=== PATIENT | female | born 1925 | race Caucasian/White ===

== ENCOUNTER 2016-06-09 13:07 | Inpatient (IN) | payer OTHER, BC ==
[~2016-06-09] VITALS: Ht 162.6 cm; Wt 52.5 kg
[2016-06-09 14:03] LABS: HEMATOCRIT 30.6 % (36.0-46.0); MCH 28.3 PG (29.0-34.0); MCHC 31.7 G/DL (30.0-36.0); MCV 89.2 FL (83-99); MEAN PLAT.VOLUME 9.2 uM^3 (9.5-12.4); RBC DIS.WIDTH-CV 14.5 % (11.8-14.6); RBC DIS.WIDTH-SD 47.5 % (39-53); RED BLOOD COUNT 3.43 M/uL (3.80-5.20); WHITE BLOOD COUNT 7.2 K/uL (4.1-10.2)
[2016-06-09 14:06] LABS: PLATELET COUNT 295 K/uL (156-360)
[2016-06-09 14:13] LABS: CHLORIDE 100 mEq/L (99-109); POTASSIUM 4.5 mEq/L (3.7-5.4); SODIUM 131 mEq/L (136-147)
[2016-06-09 14:15] LABS: GLUCOSE 109 mg/dL (70-99)
[2016-06-09 14:17] LABS: ANION GAP 8 MEQ/L (2-14); TOTAL BILIRUBIN 0.3 mg/dL (0.0-1.0)
[2016-06-09 14:19] LABS: ALKALINE PHOSPHATASE 101 IU/L (3-129); GFR ESTIMATE (CALCULATED) > 59 mL/min/
[2016-06-09 14:20] LABS: UREA NITROGEN (BUN) 11 mg/dL (9-23)
[2016-06-09 16:16] LABS: ADD MIUA? YES; BILIRUBIN NEGATIVE; BLOOD NEGATIVE; COLOR YELLOW ((YELLOW)); GLUCOSE (STRIP) NEGATIVE; KETONES 5; LEUKOCYTES TRACE; NITRITE NEGATIVE; PROTEIN (STRIP) NEGATIVE; SPECIFIC GRAVITY 1.009 (1.000-1.030); UROBILINOGEN 0.2 MG/DL (0.2-1.0)
[2016-06-09 16:22] LABS: BACTERIA NONE SEEN /HPF; EPITHELIAL CELLS RARE /HPF; MUCUS TRACE /LPF; RED BLOOD CELLS 0-5 /HPF (0-5); UCUL ADDED? NO; WHITE BLOOD CELLS 0-5 /HPF (0-5)
[2016-06-09] MEDS ORDERED: ZOFRAN8 MG PO (16:52)
[2016-06-09] MEDS ORDERED: ULTRAM50 MG PO (16:52)
[2016-06-09] MEDS ORDERED: RESTASIS 01 DROP/0.4 BOTH EYES (16:57)
[2016-06-09] MEDS ORDERED: PROTONIX40 MG PO (16:58)
[2016-06-09] MEDS ORDERED: DIOVAN160 MG PO ×2 (16:58→17:12)
[2016-06-09] MEDS ORDERED: LORAZEPAM0.5 MG PO (16:59)
[2016-06-09] MEDS ORDERED: LO-DOSE ASPIRIN81 M1 PO (17:00)
[2016-06-09] MEDS ORDERED: CLARITIN,ALAVAR10 MG PO (17:00)
[2016-06-09] MEDS ORDERED: TYLENOL PM1 CAPLET PO (17:01)
[2016-06-09 17:04] LABS: ERTH.SED.RATE 69 MM/HR (0-30)
[2016-06-09] MEDS ORDERED: MIRALAX255 GM PO (17:11)
[2016-06-09 17:44] LABS: C-REACTIVE PROTEIN 151.7 MG/L (0-10)
[2016-06-09 19:00] VITALS: BP 157/89
[2016-06-09 20:36] VITALS: BP 164/80
[2016-06-09 23:57] VITALS: BP 144/77
[2016-06-10 04:30] VITALS: BP 122/67
[2016-06-10 07:56] LABS: EOSINOPHIL (%) 0.1 % (0-5); HEMATOCRIT 29.8 % (36.0-46.0); IMMATURE GRANULOCYTE (%) 2.2 % (0.0-0.7); IMMATURE GRANULOCYTE COUNT 0.2 K/uL; INSTRUMENT ABS NEUTROPHIL CT 5.4 K/uL; MCH 28.2 PG (29.0-34.0); MCHC 31.5 G/DL (30.0-36.0); MCV 89.5 FL (83-99); MEAN PLAT.VOLUME 9.3 uM^3 (9.5-12.4); MONOCYTE (%) 13.4 % (3-12); NEUTROPHIL (%) 70.9 % (45-76); NEUTROPHIL COUNT 5.4 K/uL (1.8-6.4); PLATELET COUNT 308 K/uL (156-360); RBC DIS.WIDTH-CV 14.8 % (11.8-14.6); RBC DIS.WIDTH-SD 48.2 % (39-53); RED BLOOD COUNT 3.33 M/uL (3.80-5.20); WHITE BLOOD COUNT 7.6 K/uL (4.1-10.2)
[2016-06-10 08:00] VITALS: BP 152/70
[2016-06-10 08:20] LABS: ANION GAP 10 MEQ/L (2-14); CHLORIDE 102 MEQ/L (99-109); GFR ESTIMATE (CALCULATED) > 59 mL/min/; GLUCOSE 148 mg/dL (70-99); POTASSIUM 4.1 MEQ/L (3.7-5.4); SAMPLE HEMOLYSIS CHECK 0; SAMPLE ICTERIC CHECK 0; SAMPLE LIPEMIA CHECK 0; SODIUM 133 MEQ/L (136-147); UREA NITROGEN (BUN) 9 mg/dL (9-23)
[2016-06-10 16:00] VITALS: BP 143/67
[2016-06-10 20:00] VITALS: BP 130/65
[2016-06-10 23:43] VITALS: BP 136/71
[2016-06-11 04:00] VITALS: BP 161/83
[2016-06-11 07:03] LABS: ALKALINE PHOSPHATASE 65 IU/L (3-129); ANION GAP 6 MEQ/L (2-14); CHLORIDE 104 MEQ/L (99-109); GFR ESTIMATE (CALCULATED) > 59 mL/min/; GLUCOSE 142 mg/dL (70-99); POTASSIUM 3.9 MEQ/L (3.7-5.4); SAMPLE HEMOLYSIS CHECK 0; SAMPLE ICTERIC CHECK 0; SAMPLE LIPEMIA CHECK 0; SODIUM 135 MEQ/L (136-147); TOTAL BILIRUBIN 0.2 MG/DL (0.0-1.0); UREA NITROGEN (BUN) 10 mg/dL (9-23)
[2016-06-11 07:27] LABS: EOSINOPHIL (%) 0.1 % (0-5); HEMATOCRIT 25.7 % (36.0-46.0); IMMATURE GRANULOCYTE (%) 0.8 % (0.0-0.7); IMMATURE GRANULOCYTE COUNT 0.1 K/uL; INSTRUMENT ABS NEUTROPHIL CT 9.3 K/uL; LYMPHOCYTE COUNT 0.9 K/uL (1.0-2.8); MCH 27.9 PG (29.0-34.0); MCHC 31.1 G/DL (30.0-36.0); MCV 89.5 FL (83-99); MEAN PLAT.VOLUME 9.3 uM^3 (9.5-12.4); MONOCYTE (%) 7.9 % (3-12); MONOCYTE COUNT 0.9 K/uL (0-0.8); NEUTROPHIL (%) 83.4 % (45-76); NEUTROPHIL COUNT 9.3 K/uL (1.8-6.4); PLATELET COUNT 304 K/uL (156-360); RBC DIS.WIDTH-CV 14.9 % (11.8-14.6); RBC DIS.WIDTH-SD 48.5 % (39-53); RED BLOOD COUNT 2.87 M/uL (3.80-5.20)
[2016-06-11 07:47] LABS: WHITE BLOOD COUNT 11.1 K/uL (4.1-10.2)
[2016-06-11 08:40] VITALS: BP 163/74
[2016-06-11 16:50] VITALS: BP 168/78
[2016-06-11 19:20] VITALS: BP 148/74
[2016-06-11 23:25] VITALS: BP 166/91
[2016-06-12] VITALS (7 sets, daily range): BP systolic 130–180; BP diastolic 72–95
[2016-06-12 07:12] LABS: EOSINOPHIL (%) 0.1 % (0-5); HEMATOCRIT 25.8 % (36.0-46.0); IMMATURE GRANULOCYTE (%) 1.2 % (0.0-0.7); IMMATURE GRANULOCYTE COUNT 0.2 K/uL; INSTRUMENT ABS NEUTROPHIL CT 11.4 K/uL; LYMPHOCYTE COUNT 0.7 K/uL (1.0-2.8); MCH 28.2 PG (29.0-34.0); MCHC 31.4 G/DL (30.0-36.0); MCV 89.9 FL (83-99); MEAN PLAT.VOLUME 9.8 uM^3 (9.5-12.4); MONOCYTE (%) 7.8 % (3-12); NEUTROPHIL (%) 85.8 % (45-76); NEUTROPHIL COUNT 11.4 K/uL (1.8-6.4); PLATELET COUNT 338 K/uL (156-360); RBC DIS.WIDTH-CV 15.1 % (11.8-14.6); RBC DIS.WIDTH-SD 50.1 % (39-53); RED BLOOD COUNT 2.87 M/uL (3.80-5.20); WHITE BLOOD COUNT 13.3 K/uL (4.1-10.2)
[2016-06-12 07:39] LABS: ANION GAP 9 MEQ/L (2-14); CHLORIDE 104 MEQ/L (99-109); GFR ESTIMATE (CALCULATED) > 59 mL/min/; GLUCOSE 130 mg/dL (70-99); POTASSIUM 3.3 MEQ/L (3.7-5.4); SAMPLE HEMOLYSIS CHECK 0; SAMPLE ICTERIC CHECK 0; SAMPLE LIPEMIA CHECK 0; SODIUM 137 MEQ/L (136-147); UREA NITROGEN (BUN) 8 mg/dL (9-23)
[2016-06-13 03:46] VITALS: BP 140/82
[2016-06-13 07:00] VITALS: BP 109/82
[2016-06-13 07:07] LABS: EOSINOPHIL (%) 0.1 % (0-5); HEMATOCRIT 26.6 % (36.0-46.0); IMMATURE GRANULOCYTE (%) 1.3 % (0.0-0.7); MCH 28.3 PG (29.0-34.0); MCHC 32.3 G/DL (30.0-36.0); MCV 87.5 FL (83-99); MEAN PLAT.VOLUME 9.2 uM^3 (9.5-12.4); MONOCYTE (%) 9.8 % (3-12); NEUTROPHIL (%) 80.1 % (45-76); PLATELET COUNT 380 K/uL (156-360); RBC DIS.WIDTH-CV 14.9 % (11.8-14.6); RBC DIS.WIDTH-SD 48.1 % (39-53); RED BLOOD COUNT 3.04 M/uL (3.80-5.20); WHITE BLOOD COUNT 13.9 K/uL (4.1-10.2)
[2016-06-13 07:08] LABS: IMMATURE GRANULOCYTE COUNT 0.2 K/uL; INSTRUMENT ABS NEUTROPHIL CT 11.1 K/uL; LYMPHOCYTE COUNT 1.2 K/uL (1.0-2.8); MONOCYTE COUNT 1.4 K/uL (0-0.8); NEUTROPHIL COUNT 11.1 K/uL (1.8-6.4)
[2016-06-13 07:45] LABS: ANION GAP 11 MEQ/L (2-14); CHLORIDE 97 MEQ/L (99-109); GFR ESTIMATE (CALCULATED) > 59 mL/min/; IRON 23 MCG/DL (35-150); SAMPLE HEMOLYSIS CHECK 0; SAMPLE ICTERIC CHECK 0; SAMPLE LIPEMIA CHECK 0; SODIUM 134 MEQ/L (136-147); UREA NITROGEN (BUN) 8 mg/dL (9-23)
[2016-06-13 07:51] LABS: GLUCOSE 91 mg/dL (70-99)
[2016-06-13 12:25] VITALS: BP 140/79
[2016-06-13 15:08] VITALS: BP 168/97
[2016-06-13 16:06] LABS: C DIFF TOXIN POSITIVE (NEGATIVE)
[2016-06-13 16:10] LABS: PROBE CHECK PASS
[2016-06-13 19:01] VITALS: BP 144/76
[2016-06-14] VITALS: BP 132/86
[2016-06-14 07:30] VITALS: BP 166/84
[2016-06-14 07:30] LABS: EOSINOPHIL (%) 0.1 % (0-5); HEMATOCRIT 29.5 % (36.0-46.0); IMMATURE GRANULOCYTE (%) 1.4 % (0.0-0.7); IMMATURE GRANULOCYTE COUNT 0.2 K/uL; INSTRUMENT ABS NEUTROPHIL CT 13.4 K/uL; LYMPHOCYTE COUNT 1.1 K/uL (1.0-2.8); MCH 28.1 PG (29.0-34.0); MCHC 32.2 G/DL (30.0-36.0); MCV 87.3 FL (83-99); MEAN PLAT.VOLUME 9.4 uM^3 (9.5-12.4); MONOCYTE (%) 9.3 % (3-12); MONOCYTE COUNT 1.5 K/uL (0-0.8); NEUTROPHIL (%) 82.4 % (45-76); NEUTROPHIL COUNT 13.4 K/uL (1.8-6.4); PLATELET COUNT 472 K/uL (156-360); RBC DIS.WIDTH-CV 15.1 % (11.8-14.6); RBC DIS.WIDTH-SD 48.5 % (39-53); RED BLOOD COUNT 3.38 M/uL (3.80-5.20); WHITE BLOOD COUNT 16.3 K/uL (4.1-10.2)
[2016-06-14 08:02] LABS: ANION GAP 13 MEQ/L (2-14); CHLORIDE 99 MEQ/L (99-109); GFR ESTIMATE (CALCULATED) > 59 mL/min/; GLUCOSE 101 mg/dL (70-99); SAMPLE HEMOLYSIS CHECK 0; SAMPLE ICTERIC CHECK 0; SAMPLE LIPEMIA CHECK 0; SODIUM 135 MEQ/L (136-147); UREA NITROGEN (BUN) 15 mg/dL (9-23)
[2016-06-14 08:03] LABS: POTASSIUM 4.7 MEQ/L (3.7-5.4)
[2016-06-14 10:32] LABS: D-DIMER ELISA 2.65 mg/L FEU (< 0.57)
[2016-06-14 11:10] VITALS: BP 152/98
[2016-06-14 16:25] VITALS: BP 150/96
[2016-06-14 23:31] VITALS: BP 156/79
[2016-06-15 06:43] VITALS: BP 143/88
[2016-06-15 07:12] LABS: EOSINOPHIL (%) 0.7 % (0-5); EOSINOPHIL COUNT 0.1 K/uL (0-0.3); HEMATOCRIT 27.5 % (36.0-46.0); IMMATURE GRANULOCYTE (%) 1.2 % (0.0-0.7); IMMATURE GRANULOCYTE COUNT 0.2 K/uL; INSTRUMENT ABS NEUTROPHIL CT 10.7 K/uL; LYMPHOCYTE COUNT 1.4 K/uL (1.0-2.8); MCH 27.9 PG (29.0-34.0); MCHC 32.4 G/DL (30.0-36.0); MCV 86.2 FL (83-99); MEAN PLAT.VOLUME 9.2 uM^3 (9.5-12.4); MONOCYTE (%) 10.4 % (3-12); MONOCYTE COUNT 1.4 K/uL (0-0.8); NEUTROPHIL (%) 77.2 % (45-76); NEUTROPHIL COUNT 10.7 K/uL (1.8-6.4); PLATELET COUNT 474 K/uL (156-360); RBC DIS.WIDTH-CV 15.4 % (11.8-14.6); RBC DIS.WIDTH-SD 48.7 % (39-53); RED BLOOD COUNT 3.19 M/uL (3.80-5.20); WHITE BLOOD COUNT 13.8 K/uL (4.1-10.2)
[2016-06-15 07:39] LABS: ANION GAP 13 MEQ/L (2-14); CHLORIDE 101 MEQ/L (99-109); GFR ESTIMATE (CALCULATED) > 59 mL/min/; GLUCOSE 99 mg/dL (70-99); SAMPLE HEMOLYSIS CHECK 0; SAMPLE ICTERIC CHECK 0; SAMPLE LIPEMIA CHECK 0; SODIUM 137 MEQ/L (136-147); UREA NITROGEN (BUN) 13 mg/dL (9-23)
[2016-06-15 16:15] VITALS: BP 130/72
[2016-06-16 01:03] VITALS: BP 158/66
[2016-06-16 08:10] VITALS: BP 152/81
[2016-06-16 15:50] VITALS: BP 138/84
[2016-06-17] VITALS (7 sets, daily range): BP systolic 111–150; BP diastolic 74–89
[2016-06-17 07:15] LABS: HEMATOCRIT 27.4 % (36.0-46.0); MCH 28.1 PG (29.0-34.0); MCHC 32.8 G/DL (30.0-36.0); MCV 85.6 FL (83-99); MEAN PLAT.VOLUME 9.3 uM^3 (9.5-12.4); PLATELET COUNT 513 K/uL (156-360); RBC DIS.WIDTH-CV 15.6 % (11.8-14.6); RBC DIS.WIDTH-SD 48.7 % (39-53); WHITE BLOOD COUNT 13.2 K/uL (4.1-10.2)
[2016-06-17 12:40] LABS: TROP-I INTERPRETATION NEGATIVE; TROPONIN-I 0.19 ng/mL (0.0-0.30)
[2016-06-17 13:04] LABS: ANION GAP 10 MEQ/L (2-14); CHLORIDE 98 MEQ/L (99-109); GFR ESTIMATE (CALCULATED) > 59 mL/min/; GLUCOSE 131 mg/dL (70-99); MAGNESIUM 1.5 mg/dl (1.3-2.7); SAMPLE HEMOLYSIS CHECK 0; SAMPLE ICTERIC CHECK 0; SAMPLE LIPEMIA CHECK 0; SODIUM 132 MEQ/L (136-147); UREA NITROGEN (BUN) 10 mg/dL (9-23)
[2016-06-17 13:14] LABS: POTASSIUM 3.1 MEQ/L (3.7-5.4)
[2016-06-18 04:00] VITALS: BP 139/78
[2016-06-18 06:59] LABS: MCH 28.1 PG (29.0-34.0); MCHC 32.7 G/DL (30.0-36.0); MCV 86.1 FL (83-99); MEAN PLAT.VOLUME 9.5 uM^3 (9.5-12.4); PLATELET COUNT 466 K/uL (156-360); RBC DIS.WIDTH-SD 49.3 % (39-53); RED BLOOD COUNT 3.02 M/uL (3.80-5.20); WHITE BLOOD COUNT 10.6 K/uL (4.1-10.2)
[2016-06-18 07:30] VITALS: BP 137/88
[2016-06-18 07:30] LABS: ANION GAP 10 MEQ/L (2-14); CHLORIDE 102 MEQ/L (99-109); GFR ESTIMATE (CALCULATED) > 59 mL/min/; MAGNESIUM 1.5 mg/dl (1.3-2.7); POTASSIUM 3.3 MEQ/L (3.7-5.4); SAMPLE HEMOLYSIS CHECK 0; SAMPLE ICTERIC CHECK 0; SAMPLE LIPEMIA CHECK 0; SODIUM 135 MEQ/L (136-147); UREA NITROGEN (BUN) 11 mg/dL (9-23)
[2016-06-18 07:31] LABS: GLUCOSE 97 mg/dL (70-99)
[2016-06-18 12:07] VITALS: BP 147/92
[2016-06-18 14:45] VITALS: BP 144/76
[2016-06-18 18:36] VITALS: BP 146/87
[2016-06-18 18:48] LABS: TROP-I INTERPRETATION NEGATIVE; TROPONIN-I 0.15 ng/mL (0.0-0.30)
[2016-06-18 20:20] VITALS: BP 136/93
[2016-06-19] VITALS (8 sets, daily range): BP systolic 140–152; BP diastolic 72–90
[2016-06-20 01:04] VITALS: BP 150/82
[2016-06-20 04:03] VITALS: BP 134/79
[2016-06-20 05:53] LABS: EOSINOPHIL (%) 0.4 % (0-5); HEMATOCRIT 27.7 % (36.0-46.0); IMMATURE GRANULOCYTE (%) 0.7 % (0.0-0.7); IMMATURE GRANULOCYTE COUNT 0.1 K/uL; INSTRUMENT ABS NEUTROPHIL CT 7.8 K/uL; LYMPHOCYTE COUNT 1.5 K/uL (1.0-2.8); MCH 28.4 PG (29.0-34.0); MCHC 33.2 G/DL (30.0-36.0); MCV 85.5 FL (83-99); MEAN PLAT.VOLUME 9.8 uM^3 (9.5-12.4); MONOCYTE (%) 10.1 % (3-12); MONOCYTE COUNT 1.1 K/uL (0-0.8); NEUTROPHIL (%) 74.3 % (45-76); NEUTROPHIL COUNT 7.8 K/uL (1.8-6.4); PLATELET COUNT 529 K/uL (156-360); RBC DIS.WIDTH-CV 16.5 % (11.8-14.6); RBC DIS.WIDTH-SD 50.5 % (39-53); RED BLOOD COUNT 3.24 M/uL (3.80-5.20); WHITE BLOOD COUNT 10.5 K/uL (4.1-10.2)
[2016-06-20 06:23] LABS: ANION GAP 12 MEQ/L (2-14); CHLORIDE 101 MEQ/L (99-109); GFR ESTIMATE (CALCULATED) > 59 mL/min/; GLUCOSE 114 mg/dL (70-99); POTASSIUM 3.4 MEQ/L (3.7-5.4); SAMPLE HEMOLYSIS CHECK 0; SAMPLE ICTERIC CHECK 0; SAMPLE LIPEMIA CHECK 0; SODIUM 135 MEQ/L (136-147); UREA NITROGEN (BUN) 14 mg/dL (9-23)
[2016-06-20 07:45] VITALS: BP 148/69
[2016-06-20] MEDS ORDERED: VANCOCIN 250 M250 MG PO (11:25)
[2016-06-20] MEDS ORDERED: FERROUS SULFAT325 MG PO (11:30)
[2016-06-20] MEDS ORDERED: FUROSEMIDE40 MG PO (11:30)
[2016-06-20] MEDS ORDERED: CHOLESTYRAMINE P4 GM PO (11:30)
[2016-06-20] MEDS ORDERED: FAMOTIDINE20 MG PO (11:30)
[2016-06-20] MEDS ORDERED: LOPRESSOR25 MG PO (11:30)
[2016-06-20 11:33] VITALS: BP 144/76
== END 2016-06-20 14:05 | DRG 371 ==
LOC: EME 13:07 → 2EAST 16:10 → EDOF 16:10 → 2EAST 20:18 → 4EAST 06-17 19:10 → 3EAST 06-19 22:25
PROVIDERS: Hospitalist; Internal Medicine; Internal Medicine Gastroenterology; Physician Assistant; Physician Assistant Surgical
DX: A04.7 Enterocolitis due to Clostridium difficile (principal); A41.9 Sepsis, unspecified organism; K57.33 Diverticulitis of large intestine without perforation or abscess with bleeding; J98.11 Atelectasis; J90 Pleural effusion, not elsewhere classified; I10 Essential (primary) hypertension; E11.9 Type 2 diabetes mellitus without complications; J44.9 Chronic obstructive pulmonary disease, unspecified; Z99.81 Dependence on supplemental oxygen; E78.2 Mixed hyperlipidemia; K58.9 Irritable bowel syndrome, unspecified; I25.10 Atherosclerotic heart disease of native coronary artery without angina pectoris; K21.9 Gastro-esophageal reflux disease without esophagitis; E78.5 Hyperlipidemia, unspecified; F32.9 Major depressive disorder, single episode, unspecified; R32 Unspecified urinary incontinence; R09.02 Hypoxemia; E87.70 Fluid overload, unspecified; E61.1 Iron deficiency; D64.9 Anemia, unspecified; E87.6 Hypokalemia
CPT/HCPCS: 71010; 71275; 72131; 74176; 80048; 80053; 81003; 82272; 82306; 82607; 82746; 83540; 83605; 83735; 83880; 84132 91; 84466; 84484; 85025; 85027; 85379; 85651; 86140; 87493; 93005; 94760; 94799; 99202; 99281; 99285; J0360; J0696; J1170; J1644; J1940; J2060; J2270; J2405; J2765; J3480; J7030; J7050; Q0169; S0028; S0030

== ENCOUNTER 2016-06-27 13:47 | Emergency (ER) | payer OTHER, BC ==
[~2016-06-27] VITALS: Ht 162.6 cm; Wt 51.4 kg
[~2016-06-27 13:47] MED LIST: CHOLESTYRAMINE P4 GM PO; CLARITIN,ALAVAR10 MG PO; DIOVAN160 MG PO; FAMOTIDINE20 MG PO; FERROUS SULFAT325 MG PO; FUROSEMIDE40 MG PO; LO-DOSE ASPIRIN81 M1 PO; LOPRESSOR25 MG PO; LORAZEPAM0.5 MG PO; MIRALAX255 GM PO; PROTONIX40 MG PO; RESTASIS 01 DROP/0.4 BOTH EYES; TYLENOL PM1 CAPLET PO; ULTRAM50 MG PO; VANCOCIN 250 M250 MG PO; ZOFRAN8 MG PO
[2016-06-27 16:34] VITALS: BP 167/92
== END 2016-06-27 16:35 ==
LOC: EME → EDBD 13:47 → EME 16:35
DX: S02.2XXA Fracture of nasal bones, initial encounter for closed fracture (principal); R51 Headache; R42 Dizziness and giddiness; M25.552 Pain in left hip; W18.09XA Striking against other object with subsequent fall, initial encounter; Y92.129 Unspecified place in nursing home as the place of occurrence of the external cause; I10 Essential (primary) hypertension; Z79.82 Long term (current) use of aspirin
CPT/HCPCS: 70450; 70486; 72170; 72192; 99281; 99285